=== PATIENT | male | born 2000 | race African-American/Black ===

== ENCOUNTER 2021-11-14 23:11 | Emergency (ER) | payer OTHER ==
[2021-11-14 23:19] VITALS: BP 137/70; PULSE 84; RESP 16; TEMP 98.9; BMI 23.1
[2021-11-14] MEDS ORDERED: SODIUM CHLORIDE 0.9% 500 ML INFUS.BAG IV ONE (23:25)
[2021-11-14] MEDS ORDERED: METOCLOPRAMIDE HCL INJECTION 10 MG/2 ML VIAL IVPB ONE (23:25)
[2021-11-14] MEDS ORDERED: ACETAMINOPHEN 1000 MG/100 ML BAG IVPB ONE (23:25)
[2021-11-14] MEDS ORDERED: ACETAMINOPHEN INJECTION 100 ML IVPB ONE (23:30)
[2021-11-14] MEDS ORDERED: METOCLOPRAMIDE HCL INJECTION 10 MG/2 ML VIAL ONE (23:30)
== END 2021-11-15 00:39 | disposition home or self-care (01) ==
LOC: FER 23:11
PROC: 3E033GC Introduction of Other Therapeutic Substance into Peripheral Vein, Percutaneous Approach (ICD-10-PCS; principal; 2021-11-14)
DX: R51.9 Headache, unspecified (principal)
CPT/HCPCS: 0241U-QW; 99284-25

== ENCOUNTER 2021-11-16 01:55 | Emergency (ER) | payer OTHER ==
[2021-11-16 02:14] VITALS: BP 127/85; PULSE 85; RESP 16; TEMP 98.5; BMI 23.1
[2021-11-16] MEDS ORDERED: KETOROLAC TROMETHAMINE 30 MG/1 ML VIAL IVPUSH ONE (03:58)
[2021-11-16] MEDS ORDERED: KETOROLAC TROMETHAMINE 30 MG/1 ML VIAL ONE (03:59)
[2021-11-16] MEDS ORDERED: AMOX TR/POT CLAV 875MG/125MG TABLETS (FP) ONE (04:25)
[2021-11-16] MEDS ORDERED: AMOX TR/POT CLAV 875MG/125MG TABLETS (FP) PO ONE (04:26)
== END 2021-11-16 04:34 | disposition home or self-care (01) ==
LOC: FER 01:55
PROC: 3E033GC Introduction of Other Therapeutic Substance into Peripheral Vein, Percutaneous Approach (ICD-10-PCS; principal; 2021-11-16)
DX: R51.9 Headache, unspecified (principal); J32.3 Chronic sphenoidal sinusitis
CPT/HCPCS: 70450-TC; 99284-25